=== PATIENT | male | born 1990 | race Caucasian/White ===

== ENCOUNTER 2019-03-03 00:38 | Emergency (ER) | payer BC ==
[2019-03-03 00:43] VITALS: BP 127/83
[2019-03-03] MEDS ORDERED: ADDERALL 30 MG30 MG PO (00:47)
[2019-03-03] MEDS ORDERED: PENICILLIN-VK500 M1 PO ×2 (01:15→01:16)
== END 2019-03-03 01:25 | disposition home or self-care (01) ==
LOC: ED 00:38
DX: S02.5XXA Fracture of tooth (traumatic), initial encounter for closed fracture (principal); K02.9 Dental caries, unspecified; F17.210 Nicotine dependence, cigarettes, uncomplicated
CPT/HCPCS: J1885; J2550

== ENCOUNTER 2019-10-04 22:12 | Emergency (ER) | payer SELFPAY ==
[~2019-10-04] VITALS: Ht 170.2 cm; Wt 65.9 kg
[~2019-10-04 22:12] MED LIST: ADDERALL 30 MG30 MG PO; PENICILLIN-VK500 M1 PO
[2019-10-04 23:43] VITALS: BP 132/53
== END 2019-10-04 23:43 | disposition home or self-care (01) ==
LOC: ED 22:12
DX: S05.01XA Injury of conjunctiva and corneal abrasion without foreign body, right eye, initial encounter (principal); F98.8 Other specified behavioral and emotional disorders with onset usually occurring in childhood and adolescence; F17.210 Nicotine dependence, cigarettes, uncomplicated; X58.XXXA Exposure to other specified factors, initial encounter; Y92.009 Unspecified place in unspecified non-institutional (private) residence as the place of occurrence of the external cause
CPT/HCPCS: 90715